=== PATIENT | female | born 1965 | race African-American/Black ===

== ENCOUNTER → 2018-10-14 | Day surgery (SDC) | payer OTHER ==
[~2018-10-14] VITALS: Ht 160 cm; Wt 99.3 kg
[~2018-10-14] MED LIST: AMLODIPINE BESY10 MG PO; APRESOLINE25 MG PO; ASPIR LOW81 MG PO; ATACAND16 MG PO; BACTRIM DS 8001 TA1 PO; BP MEDICATION; CELEXA20 MG PO; GLIPIZIDE10 MG PO; HUMULIN R100 UNIT/1 SQ; HYZAAR; KLOR-CON 1010 MEQ PO; LASIX20 MG PO; LIPITOR20 MG PO; Lopressor25 MG PO; METFORMIN ER500 MG PO; PROFE180 MG PO
--- NOTE | ~2018-10-14 | O ---
[place], [place] OPERATIVE NOTE NAME: NAYELI HERRERA [facility] #: [id number] UNIT #: [id number] ROOM: DOCTOR: JAME ENGLISH MD BIRTHDATE: [birth year] DOS: 10/14/2018 PROCEDURE NOTE PROCEDURE: Colonoscopy. INDICATIONS: Change in bowel habits and colon cancer screening. An informed consent was obtained from the patient after indication of the procedure, the alternatives and potential complications were explained to her. PROCEDURE MEDICATION: Sedation was administered by Anesthesiology Department. SCOPE USED: Olympus pediatric colonoscope, variable stiffness, GIF-180, depth of insertion was to the cecum, which was identified by the usual landmarks, appendiceal orifice, ileocecal valve and triangular fold, in addition to transillumination in the right lower quadrant. FINDINGS: After adequate sedation, the patient was placed in left lateral decubitus position. Rectal examination showed a normal sphincter tone and no external hemorrhoids. Scope was introduced into the rectum then advanced to the cecum with no difficulty. The prep was adequate. The colon mucosa showed mild left-sided diverticular disease. The remaining colon mucosa was within normal range with no evidence of polyps, ulcerations or obstructing lesions. Retroflexed views in the rectum were unremarkable. The scope was then withdrawn after the rectum was decompressed. The patient tolerated the procedure well. IMPRESSION: 1. Mild left-sided diverticular disease. 2. Normal colon mucosa, otherwise no polyps seen. PLAN: There is no need for further GI workup at this time. The patient was advised to follow a high fiber diet and use fiber supplements daily. Repeat screening colonoscopy is recommended in 10 years with office followup p.r.n. [place], [place] OPERATIVE NOTE NAME: NAYELI HERRERA [facility] #: [id number] UNIT #: [id number] ROOM: DOCTOR: JAME ENGLISH MD BIRTHDATE: [birth year] JAME ENGLISH MD CM:OPRECORD:OPERATIVE NOTE [id number] NATAN ENGLISH MD 10/15/18 0040 interface
[2018-10-14 08:54] VITALS: BP 150/78
[2018-10-14 10:15] VITALS: BP 127/67
[2018-10-14 10:30] VITALS: BP 126/67
[2018-10-14 10:45] VITALS: BP 138/74
== END | disposition home or self-care (01) ==
LOC: SDC 10-10 01:31
DX: K57.30 Diverticulosis of large intestine without perforation or abscess without bleeding (principal); R19.5 Other fecal abnormalities; I10 Essential (primary) hypertension; E78.5 Hyperlipidemia, unspecified; E11.9 Type 2 diabetes mellitus without complications; E66.9 Obesity, unspecified; M19.90 Unspecified osteoarthritis, unspecified site; Z79.4 Long term (current) use of insulin; Z79.82 Long term (current) use of aspirin; Z79.899 Other long term (current) drug therapy; Z90.49 Acquired absence of other specified parts of digestive tract; Z86.73 Personal history of transient ischemic attack (TIA), and cerebral infarction without residual deficits; Z98.890 Other specified postprocedural states; Z68.38 Body mass index [BMI] 38.0-38.9, adult; Z83.3 Family history of diabetes mellitus

== ENCOUNTER 2022-11-19 14:48 | Emergency (ER) | payer OTHER ==
[~2022-11-19] VITALS: Ht 160 cm; Wt 102.1 kg
[2022-11-19] MEDS ORDERED: VIBRAMYCIN100 MG PO (17:44)
== END 2022-11-19 19:37 | disposition home or self-care (01) ==
LOC: ED 14:48
DX: S90.414A Abrasion, right lesser toe(s), initial encounter (principal); Z86.73 Personal history of transient ischemic attack (TIA), and cerebral infarction without residual deficits; F32.A Depression, unspecified; I10 Essential (primary) hypertension; E11.9 Type 2 diabetes mellitus without complications; Z90.49 Acquired absence of other specified parts of digestive tract; W26.9XXA Contact with unspecified sharp object(s), initial encounter; Y93.89 Activity, other specified; Y92.89 Other specified places as the place of occurrence of the external cause; Y99.8 Other external cause status

== ENCOUNTER → 2023-10-11 | Outpatient (CLI) | payer OTHER ==
[~2023-10-11] MED LIST changes: +VIBRAMYCIN100 MG PO
== END | disposition home or self-care (01) ==
LOC: MAMMO 11:19
PROVIDERS: ATTEND Internal Medicine
DX: Z12.31 Encounter for screening mammogram for malignant neoplasm of breast (principal); N64.9 Disorder of breast, unspecified

== ENCOUNTER → 2023-12-06 | Outpatient (CLI) | payer OTHER | END | disposition home or self-care (01) | LOC: US 10-19 15:00 | PROVIDERS: ATTEND Internal Medicine Nephrology | DX: N18.31 Chronic kidney disease, stage 3a (principal) ==

== ENCOUNTER 2023-12-19 16:41 | Emergency (ER) | payer OTHER ==
[~2023-12-19] VITALS: Ht 160 cm; Wt 103.4 kg
[2023-12-19] MEDS ORDERED: Meclizine Hydrochloride 25 MG TAB PO ONE (17:20)
[2023-12-19 17:33] LABS: BASO % 0.3 % (0.0-1.0); EOS # 0.1 10*3/uL (0.0-0.4); EOS % 2.2 % (1.0-4.0); HEMATOCRIT 32.5 % (37.0-47.0); LYMPH # 1.4 10*3/uL (1.3-4.4); LYMPH % 22.7 % (27.0-41.0); MEAN PLATELET VOLUME 10.3 fl (9.6-12.3); MONO # 0.6 10*3/uL (0.1-1.0); MONO % 8.7 % (3.0-9.0); NEUT # 4.2 10*3/uL (2.3-7.9); NEUT % 65.9 % (47.0-73.0); PLATELET COUNT AUTOMATED 239 10*3/uL (130-400); RED BLOOD COUNT 3.35 10*6/uL (4.10-5.10); RED CELL DISTRI WIDTH 14.4 % (0-14.5); WHITE BLOOD COUNT 6.3 10*3/uL (4.8-10.8)
[2023-12-19 18:53] LABS: BUN 12 mg/dl (9-23); CHLORIDE 104 mmol/L (98-107); POTASSIUM 4.1 mmol/L (3.4-5.1)
[2023-12-19] MEDS ORDERED: Ondansetron4 MG PO (20:53)
[2023-12-19] MEDS ORDERED: Meclizine25 MG PO (20:53)
== END 2023-12-19 21:15 | disposition home or self-care (01) ==
LOC: ED 16:41
PROVIDERS: Physician Assistant Medical
DX: R42 Dizziness and giddiness (principal); F32.A Depression, unspecified; I10 Essential (primary) hypertension; E11.9 Type 2 diabetes mellitus without complications; Z86.73 Personal history of transient ischemic attack (TIA), and cerebral infarction without residual deficits; Z90.49 Acquired absence of other specified parts of digestive tract

== ENCOUNTER → 2024-01-05 | Outpatient (CLI) | payer OTHER ==
[~2024-01-05] MED LIST changes: +Meclizine25 MG PO; +Ondansetron4 MG PO
== END | disposition home or self-care (01) ==
LOC: RAD 16:04
PROVIDERS: ATTEND Internal Medicine
DX: M17.0 Bilateral primary osteoarthritis of knee (principal)